=== PATIENT | female | born 1965 | race Caucasian/White ===

== ENCOUNTER 2018-02-26 18:29 | Emergency (ER) | payer MEDICAID | END 2018-02-26 19:16 | disposition left against medical advice (07) | LOC: ED 19:10 | DX: R07.81 Pleurodynia (principal); Z53.21 Procedure and treatment not carried out due to patient leaving prior to being seen by health care provider ==

== ENCOUNTER 2018-04-25 14:19 | Emergency (ER) | payer MEDICAID ==
[~2018-04-25] VITALS: Ht 162.6 cm; Wt 80.1 kg
[2018-04-25 14:32] VITALS: BP 146/88
== END 2018-04-25 15:18 | disposition home or self-care (01) ==
LOC: ED 14:49
DX: K02.9 Dental caries, unspecified (principal); K08.89 Other specified disorders of teeth and supporting structures; Z88.0 Allergy status to penicillin; Z88.5 Allergy status to narcotic agent
CPT/HCPCS: 99283